=== PATIENT | male | born 1995 | race African-American/Black ===

== ENCOUNTER 2016-11-25 12:28 | Emergency (ER) | payer OTHER ==
[~2016-11-25] VITALS: Ht 182.9 cm; Wt 88.5 kg
[2016-11-25 12:33] VITALS: BP 142/81
[2016-11-25] MEDS ORDERED: LIDOCAINE HCL/PF 1% 30 ML VIAL TP ONE (13:30)
[2016-11-25] MEDS ORDERED: TDAP [DIPH/PERTUSSIS/TET] 0.5 ML VIAL IM ONE ×2 (13:30→13:41)
== END 2016-11-25 13:54 | disposition home or self-care (01) ==
LOC: ER 12:30
DX: S61.412A Laceration without foreign body of left hand, initial encounter (principal); W01.0XXA Fall on same level from slipping, tripping and stumbling without subsequent striking against object, initial encounter; Y93.89 Activity, other specified; Y92.89 Other specified places as the place of occurrence of the external cause; Y99.0 Civilian activity done for income or pay
CPT/HCPCS: 73130-TC; 90715; A4606; J3490; Z7610